=== PATIENT | female | born 1990 | race Caucasian/White ===

== ENCOUNTER 2018-01-19 11:44 | Emergency (ER) | payer MEDICAID, SELFPAY ==
[2018-01-19 11:45] VITALS: BP 115/82; PULSE 116; RESP 16; TEMP 37.3; O2SAT 97; BMI 36.1
[2018-01-19 11:57] VITALS: BP 125/79; PULSE 111; RESP 16; O2SAT 97
[2018-01-19] MEDS: Acetaminophen 500 MG Tablet 1000 MG PO (12:17)
[2018-01-19] MEDS: 0.9% Normal Saline 1,000 ML 1000 ML IV (12:17)
[2018-01-19 12:29] LABS: Mucous, Urine 0 SEEN /hpf (<or=2+); Red Blood Cells-Urine 0 SEEN /hpf (0-5)
[2018-01-19 12:31] LABS: Color, Urine Yellow (Yellow); Glucose, Dipstick Normal (Normal); Ketone-Dipstick 5 mg/dl (Negative); Leukocyte Esterase-Dipstick 25 /ul (Negative); Nitrite-Dipstick Negative (Negative); Occult Blood-Urine 10 /ul (Negative); Protein-Dipstick 30 mg/dl (Negative); Specific Gravity, Urine 1.015 (1.002-1.030); Urine Bilirubin Dipstick Negative (Negative); Urine Clarity Sl. Cloudy (Clear); Urine Urobilinogen 4 mg/dl (Normal); Urine pH 6.5 (5.0 - 8.0)
[2018-01-19 12:41] LABS: Bacteria 1+ /hpf (None Seen)
[2018-01-19 12:42] LABS: Squamous Epithelial Cells - UA 5-10 SEEN /hpf (5-10)
[2018-01-19 12:44] LABS: Hyaline Cast 0-5 SEEN /lpf (0-5); White Blood Cells 0-5 SEEN /hpf (0-5)
--- NOTE | 2018-01-19 13:14 | ED.DCSUM_ITS ---
- ER Visit Summary Date of Service: 01/19/18 Chief Complaint: Vomiting History of Present Illness: The patient is a 27 F who is 14 weeks . She is Ab1. She has had nausea vomiting since Clement night. She notes that she has had an onset of rhinorrhea cough myalgias headache chills and sweats. She denies any diarrhea or rashes. She states she has been around numerous people who have had the flu. Physical Examination: Temperature 99.2 heart rate of 116 respirations are 16 pulse ox is 97% blood pressure 115/82 Gen: Well-nourished well-developed Head: Normocephalic atraumatic Eyes: Perrl EOMI ENT: TMs clear +rhinorrhea moist mucous membranes Neck: Supple no lymphadenopathy no JVD nontender CVS: Slightly tachycardic regular rate rhythm no murmurs normal S1-S2 Respiratory: No distress clear to auscultation bilaterally chest nontender Abdomen: Soft nontender nondistended normal bowel sounds no masses Back: Nontender Extremity: Nontender no edema Skin: Normal color no rash Neuro: alert orientated ?3 CN II-XII intact normal strength sensation reflexes gait cerebellar Psych: Normal affect normal mood Test Results: Urinalysis showed 5-10 epithelial cells 1+ bacteria. There were 5 ketones noted. She is influenza B positive. Emergency Department Course and Treatment: The heart tones 150. Patient received a dose of Phenergan and IV fluids. She also received a dose of Tylenol. Patient will be started on Tamiflu and following with the CDC guidelines. Also write her for Phenergan. She is to follow-up with her doctor return if worsening. Impression: Line 1. Influenza B 2. Second trimester This note was generated with [employer] dictation software. It may contain incorrect words, spelling, and punctuation that were not noted in review of the chart prior to signing ED Disposition - Plan for ED Patient: Disposition: Home or Assisted Living Chief Complaint: Nausea/Vomiting Instructions: ED Flu Prescriptions: ProMETHAzine [Phenergan] 25 mg PO Q6H PRN PRN #10 tab PRN Reason: Nausea Oseltamivir Phosphate [Tamiflu] 75 mg PO BID #10 cap Referrals: Derick Xie DO [Primary Care Provider] - Keep Maggie appointment Additional Instructions: return if worsening or concerns
[2018-01-19 13:49] VITALS: BP 120/73; PULSE 97; RESP 16; O2SAT 95
== END 2018-01-19 13:52 | disposition home or self-care (01) ==
PROVIDERS: Emergency Provider Emergency Medicine; Family Provider Specialist; PCP Specialist
DX: O98.512 Other viral diseases complicating pregnancy, second trimester (principal); J10.1 Influenza due to other identified influenza virus with other respiratory manifestations; Z3A.14 14 weeks gestation of pregnancy
CPT/HCPCS: 81001; 87804; J7030

== ENCOUNTER → 2018-01-19 12:38 | Outpatient (CLI) | payer MEDICAID, SELFPAY ==
[2018-01-20 09:28] LABS: HIV - WCH Non-Reactive (Nonreactive)
[2018-01-21 15:55] LABS: V-Zoster IgG (Immunity) 961 index (Immune >165)
== END ==
PROVIDERS: Family Provider Specialist; PCP Specialist; Visit Provider Specialist
DX: O99.212 Obesity complicating pregnancy, second trimester (principal); E66.9 Obesity, unspecified; O98.512 Other viral diseases complicating pregnancy, second trimester; J10.1 Influenza due to other identified influenza virus with other respiratory manifestations; Z3A.14 14 weeks gestation of pregnancy
CPT/HCPCS: 81001; 86703; 86787; 87804; 96361; 96374; 99283; J7030

== ENCOUNTER → 2018-03-27 09:35 | Outpatient (CLI) | payer MEDICAID, SELFPAY ==
[2018-03-27 11:11] LABS: Hematocrit 33.6 % (37-47); Hemoglobin 11.2 g/dl (12.0-15.0); Mean Corp Hgb Conc 33.3 g/gl (32-36); Mean Corpuscular Hgb 30.1 pg (27.0-32.0); Mean Corpuscular Volume 90.3 fL (81-99); Platelet Count 228 K/mm3 (150-450); RBC Distribution Width CV 12.9 % (11.6-14.6); RBC Distribution Width SD 42.5 fl (35.1-43.9); Red Blood Count 3.72 M/mm3 (4.2-5.4); Scan Indicated on CBC? Y/N NO; White Blood Count 9.9 K/mm3 (4.4-11.0)
[2018-03-27 12:08] LABS: Glucose Challenge Gest 1H 50g 196 mg/dL (70-140); Thyroid Stim Hormone (TSH) 1.93 uIU/mL (0.358-3.74)
[2018-03-28 01:05] LABS: Rapid Plasmin Reagin (RPR) NONREACTIVE (NONREACTIVE)
[2018-03-28 09:30] LABS: HIV - WCH Non-Reactive (Nonreactive); Rubella IgG 103.7 IU/mL
[2018-03-29 10:56] LABS: Hep B Surface Antibodies Non Reactive (.); V-Zoster IgG (Immunity) 914 index (Immune >165)
== END ==
PROVIDERS: Family Provider Specialist; PCP Specialist; Visit Provider Specialist
DX: Z36.89 Encounter for other specified antenatal screening (principal)
CPT/HCPCS: 36415; 82950; 84443; 85027; 86592; 86703; 86706; 86762; 86787; 86850; 86900

== ENCOUNTER 2018-12-29 08:28 | Emergency (ER) | payer MEDICAID, SELFPAY ==
[2018-12-29 08:29] VITALS: BP 150/97; PULSE 105; RESP 20; TEMP 36.6; O2SAT 97; BMI 37.0
--- NOTE | 2018-12-29 08:52 | RAD_ITS ---
STUDY: X-RAY - LEFT ANKLE REASON FOR EXAM: Female, 28 years old. Medial ankle pain following a fall. TECHNIQUE: 3 view(s) of the ankle. COMPARISON: None. FINDINGS: Normal visualized distal tibia and fibula. Normal medial and lateral malleoli. Normal tibiotalar articulation and ankle mortise. A spur is seen at the insertion of the Achilles tendon. The visualized subtalar, talonavicular, calcaneocuboid and tarsal articulations are normal. The soft tissue structures are unremarkable. RAD/Ankle min 3 Views IMPRESSION: No acute abnormality is seen. Electronically Signed: Dean Hickey MD at 9:20 EST , Service support ,
--- NOTE | 2018-12-29 08:56 | ED.DCSUM_ITS ---
- ER Visit Summary Date of Service: 12/29/18 Chief Complaint: Left ankle pain, cold symptoms History of Present Illness: The patient is a 28 F who slipped on the ice last night and rolled her left ankle pain she is complaining of pain primarily to the medial portion of her ankle and has difficulty with weightbearing on her heel. She denies pain at her knee. She also complains of cough and cold symptoms for the past several days. Physical Examination: Vital signs remarkable for blood pressure 150/97 and a heart rate of 105. Head neck examination unremarkable. TMs clear. Heart is regular rate and rhythm. Lungs sounds are clear. Abdomen is soft nontender. Left lower extremity examination reveals medial malleolar tenderness with minimal edema. There is no tenderness of the proximal fibula. She has strong distal pulses. No overlying skin changes. Test Results: Left ankle x-rays are obtained and show no acute abnormality. Emergency Department Course and Treatment: Patient is given naproxen and Tessalon Perles for her cough. Test results are discussed with her. She will be given an air stirrup splint, naproxen, and Tessalon Perles for home. She is given a work note for today. Treatment Plan: [] Disposition: Discharge Impression: 1. Left ankle sprain 2. Viral URI This note was generated with [employer] dictation software. It may contain incorrect words, spelling, and punctuation that were not noted in review of the chart prior to signing ED Disposition - Plan for ED Patient: Referrals: Derick Xie DO [STAFF PHYSICIAN] -
[2018-12-29] MEDS: Naproxen 500 MG Tablet PO (09:16)
[2018-12-29] MEDS: Benzonatate 100 MG Capsule 200 MG PO (09:16)
--- NOTE | 2018-12-29 09:34 | ED.DEP ---
ED Disposition - Plan for ED Patient: Disposition: Home or Assisted Living Instructions: ED Sprain Ankle W X Ray, ED URI Viral Prescriptions: Benzonatate [Tessalon Perle] 200 mg PO TID PRN PRN #20 capsule PRN Reason: Cough Naproxen [Naprosyn] 500 mg PO BID PRN PRN #20 tablet PRN Reason: Pain Referrals: Solange Guthrie DO [STAFF PHYSICIAN] - As Needed
== END 2018-12-29 10:00 | disposition home or self-care (01) ==
PROVIDERS: Emergency Provider Emergency Medicine
DX: S93.402A Sprain of unspecified ligament of left ankle, initial encounter (principal); W00.2XXA Other fall from one level to another due to ice and snow, initial encounter; Y93.9 Activity, unspecified; Y92.9 Unspecified place or not applicable; J06.9 Acute upper respiratory infection, unspecified
CPT/HCPCS: 73610; 99284

== ENCOUNTER 2019-12-17 19:59 | Emergency (ER) | payer MEDICAID, SELFPAY ==
[2019-12-17 20:00] VITALS: BP 150/104; PULSE 92; RESP 18; TEMP 36.4; O2SAT 100; BMI 37.5
--- NOTE | 2019-12-17 20:36 | ED.VIS.URI ---
History of Present Illness Chief Complaint: Eye Problem Informant: Patient Onset: Today Context: - - awoke with symptoms Timing: Continuous Quality: red, irritated Location: left > right Current Severity: Mild Maximum Severity: Mild Worsened by: - - n/a Relieved by: - - n/a Associated Symptoms: Nasal Congestion, Nonproductive cough, - - no fevers. Negative for: Shortness of Breath Narrative: Patient has had a cold for less than a week, today she woke up with matting in both eyes, redness, irritation. No changes in her vision. No itching. She denies any obvious chemical exposure to her eyes. 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 Past Medical History - Allergies and Home Meds Allergies/Adverse Reactions: Allergies tramadol Allergy (Verified 12/17/19 20:02) Hives Primary Care Physician: Care Physician,No Primary [Primary Care Provider] - Past Medical History: None Lives: Alone Smoking Status: Never smoker Review of Systems General: Denies: Chills, Fever, Sweats Eyes: Reports: - - Bilateral eye redness, matting, irritation. Denies: Visual changes - bilaterally, Diplopia ENT: Reports: Rhinorrhea. Denies: Bilateral ear pain, Sore throat Respiratory: Reports: Cough. Denies: Dyspnea, Sputum Physical Exam Vital Signs/Narrative: Vital Signs Temp Pulse Resp BP Pulse Ox 12/17/19 20:00 97.6 F L 92 18 150/104 H 100 Inital Vital Signs reviewed: Yes General: Well nourished, Well developed, - - Well-appearing, NAD Head: Normocephalic, Atraumatic Eyes: Perrl, EOMI - Without pain or extraocular entrapment, - - Lateral conjunctival injection, palpebral and bulbar, worse on the left than the right. No active purulent discharge. No chemosis. Corneas grossly are normal bilaterally. Ears: Normal external canal, TM's clear Nose: Normal Inspection, Congestion. Negative for: Purulent Drainage Mouth/Throat: Normal Inspection, No Posterior Erythema Neck: Supple, Nontender, No Lymphadenopathy Cardiovascular: Regular rate, Regular rhythm, No murmurs Respiratory: No distress, CTA bilaterally, Chest nontender Skin: Normal color, No rash Neurological: Alert, Oriented x3, Cranial nerves II-XII grossly intact, Normal Strength, Normal Sensation, Normal Gait Psychological: Normal affect, Normal Mood Diagnostic/Tx/Re-eval - Medical Decision Making Advised patient this is likely viral and probably will not get better with antibiotic ointment, but given her a tube of bacitracin ophthalmic for symptom control/comfort only. Given work note as she should not be around food since that this is likely very contagious. ED Disposition - Plan for ED Patient: Disposition: Home or Assisted Living Diagnosis: Conjunctivitis, both eyes, Viral URI with cough Instructions: CONJUNCTIVITIS, Viral, URI, Viral, No Abx (Adult) Referrals: Kira Jauregui [NON-STAFF] - 10-14 Days if not better Additional Instructions: May use antibiotic ointment to affected eye(s) as needed up to every 3-4 hours
[2019-12-17 21:03] VITALS: RESP 16
== END 2019-12-17 21:04 | disposition home or self-care (01) ==
LOC: ED 20:40
PROVIDERS: Emergency Provider Emergency Medicine
DX: H10.9 Unspecified conjunctivitis (principal); J06.9 Acute upper respiratory infection, unspecified
CPT/HCPCS: 99282

== ENCOUNTER 2019-12-22 08:16 | Emergency (ER) | payer MEDICAID, SELFPAY ==
[2019-12-22 08:17] VITALS: BP 146/102; PULSE 97; RESP 18; TEMP 36.6; O2SAT 99; BMI 39.4
--- NOTE | 2019-12-22 08:51 | ED.VISSUMM ---
- ER Visit Summary Date of Service: 12/22/19 Chief Complaint: Bilateral eye discharge History of Present Illness: The patient is a 29 F no significant past medical history. No prior eye surgery. Does not wear contacts. Does wear glasses. States she was diagnosed with pinkeye last . She has had crusting. She has been bacitracin ointment. And now her eyes are red. She denies any trauma. She denies any fever. Physical Examination: Well-appearing 29-year-old female. Vital signs stable afebrile. H EENT exam unremarkable except bilateral subconjunctival hemorrhages. Currently no discharge. No swelling. Extraocular motions are intact. Pupils round reactive light. Upper and lower lids were everted unremarkable. Tetracaine was instilled in both eyes as well as fluorescein stain. There is no foreign body. No ulcers. And no corneal abrasions. Slit-lamp was done bilaterally. There is no facial lymphadenopathy. No significant facial swelling. Neck nontender. Lungs clear to auscultation bilaterally. Heart regular rhythm no murmur. Abdomen soft nontender. Patient moving all 4 extremities. Neurovascularly intact. No edema. Neurologic exam normal. Test Results: None Emergency Department Course and Treatment: Slit-lamp done on both eyes shows bilateral subconjunctival hemorrhages but no corneal abrasions or ulcers. Treatment Plan: Stop the bacitracin ointment. Follow-up with marketing data specialist if not improving. Disposition: Discharge Impression: Status post viral conjunctivitis Bilateral subconjunctival hemorrhages This note was generated with [employer] dictation software. It may contain incorrect words, spelling, and punctuation that were not noted in review of the chart prior to signing ED Disposition - Plan for ED Patient: Referrals: Care Physician,No Primary [Primary Care Provider] -
--- NOTE | 2019-12-22 09:42 | ED.DEP ---
ED Disposition - Plan for ED Patient: Disposition: Home or Assisted Living Instructions: Subconjunctival Hemorrhage Referrals: Zach Arriola MD [STAFF PHYSICIAN] - 3-5 Days if not improving Additional Instructions: Do not rub your eyes. Stop the eye ointment. This should progressively start getting better if not follow-up with the eye doctor listed.
[2019-12-22] MEDS: Tetracaine 0.5% Ophthalmic Bottle 5 DRP EACH EYE (09:48)
== END 2019-12-22 09:50 | disposition home or self-care (01) ==
PROVIDERS: Emergency Provider Emergency Medicine
DX: H11.33 Conjunctival hemorrhage, bilateral (principal); R11.2 Nausea with vomiting, unspecified
CPT/HCPCS: 99282

== ENCOUNTER 2020-02-07 11:21 | Emergency (ER) | payer MEDICAID, SELFPAY ==
[2020-02-07 11:22] VITALS: BP 140/101; PULSE 93; RESP 20; TEMP 36.8; O2SAT 97; BMI 39.6
--- NOTE | 2020-02-07 11:41 | ED.VIS.GEN ---
History of Present Illness Chief Complaint: Cough Informant: Patient Onset: Weeks Maximum Severity: Mild Narrative: National coronavirus emergency and affect patient no exposures Harsh cough runny nose for about 3 weeks she is not had a flu vaccination, she smokes marijuana no cigarettes, eating and drinking well no fever just the persistence of the cough no obvious other exposures no history of COPD ME PE otherwise feeling well no fevers Past Medical History - Allergies and Home Meds Allergies/Adverse Reactions: Allergies tramadol Allergy (Verified 02/07/20 11:23) Hives Primary Care Physician: Care Physician,No Primary [Primary Care Provider] - Past Medical History: None Smoking Status: Current every day smoker Review of Systems General: Denies: Chills, Fever, Sweats Eyes: Denies: Visual changes - bilaterally, Diplopia ENT: Reports: Rhinorrhea. Denies: Sore throat Cardiovascular: Denies: Chest pain, Palpitations Respiratory: Reports: Cough. Denies: Dyspnea, Dyspnea on exertion Gastrointestinal: Denies: Abdominal pain, Nausea, Vomiting, Diarrhea, Melena, Hematochezia Genitourinary: Denies: Dysuria, Hematuria, Frequency Musculoskeletal: Denies: Back pain, Extremity Pain Skin: Denies: Rash, Wounds Neurological: Denies: Headache, Weakness, Numbness Physical Exam Vital Signs/Narrative: Vital Signs Temp Pulse Resp BP Pulse Ox 02/07/20 11:22 98.3 F 93 20 H 140/101 H 97 General: Well nourished, Well developed, No Acute Distress Head: Normocephalic, Atraumatic Eyes: Perrl, EOMI ENT: Moist mucous membranes, Nasal congestion Neck: Supple, Nontender Cardiovascular: Regular rate, Regular rhythm, No murmurs Respiratory: No distress, CTA bilaterally, Chest nontender Abdomen: Soft, Nontender, Nondistended, Normal bowel sounds Back: Nontender, Normal Inspection Extremities: Nontender, No edema Skin: Normal color, No rash Neurological: Alert, Oriented x3, Cranial nerves II-XII grossly intact, Normal Strength, Normal Sensation Psychological: Normal affect, Normal Mood Diagnostic/Tx/Re-eval - Medical Decision Making Clinically the patient looks well her vital signs are unremarkable she is afebrile she does not have a dry cough here this time chest x-rays obtained, is unremarkable explained all the above with her explained the concept of a coronavirus she has no exposures history of COPD she discharged on inhaler [id number] meds and she will follow-up with her outpatient providers Home stable Final impression URI with cough ED Disposition - Plan for ED Patient: Diagnosis: URI with cough Instructions: BRONCHITIS with Wheezing (Adult) Prescriptions: Albuterol Inhaler [Ventolin Hfa] 1 - 2 puff INHALATION Q4H PRN PRN #1 inhaler PRN Reason: Wheezing Prescription Printed Referrals: Care Physician,No Primary [Primary Care Provider] -
--- NOTE | 2020-02-07 12:00 | RAD_ITS ---
STUDY: X-RAY CHEST REASON FOR EXAM: Female, 29 years old. Cough and congestion x3 weeks TECHNIQUE: PA and lateral views of the chest. COMPARISON: 08/01/2017 FINDINGS: The lungs are clear and expanded. There is no demonstrated pleural abnormality. Normal size heart. Normal mediastinum and alex. Normal visualized pulmonary arteries. Normal visualized aortic arch and descending thoracic aorta. Normal visualized thoracic spine. Normal visualized ribs, clavicles, and shoulders. There is no demonstrated abnormality of the visualized soft tissue structures of the upper abdomen. RAD/Chest PA and Lateral IMPRESSION: Normal x-ray examination of the chest. Electronically Signed: Romario Carr MD at 12:29 EDT , Service support ,
[2020-02-07 12:55] VITALS: PULSE 97; RESP 16; O2SAT 97
== END 2020-02-07 12:58 | disposition home or self-care (01) ==
LOC: ED 11:53
PROVIDERS: Emergency Provider Emergency Medicine
DX: J06.9 Acute upper respiratory infection, unspecified (principal); F17.200 Nicotine dependence, unspecified, uncomplicated
CPT/HCPCS: 71046; 99282

== ENCOUNTER 2020-02-10 17:40 | Emergency (ER) | payer MEDICAID, SELFPAY ==
[2020-02-10 17:40] VITALS: BP 158/119; PULSE 93; PULSE 98; RESP 16; RESP 18; TEMP 36.2; O2SAT 97; BMI 39.5
--- NOTE | 2020-02-10 18:03 | ED.VISSUMM ---
- ER Visit Summary Date of Service: 02/10/20 Chief Complaint: Left ear pain History of Present Illness: The patient is a 29 F who presents with left ear pain that is been getting worse over the past 4 days. Patient was seen here 4 days ago and was diagnosed with bronchitis. Patient states she was put on an inhaler for her bronchitis which has not been helping. Patient states that when she left here she developed ear pain in her left ear shortly after she got home. Patient denies any fevers or chills. Patient describes her pain as throbbing. Patient states she has been taking Tylenol and ibuprofen with no improvement. Patient denies any nausea or vomiting. Physical Examination: Vital signs are stable. Patient is afebrile here. Patient is in no acute distress. The left tympanic membrane is dull and bulging. There is some mild erythema. The right tympanic membrane has a moderate effusion. There is no erythema or bulging. Oral mucosa is pink and moist. Oropharynx is clear. Neck is supple. Trachea is midline. There is no JVD. Heart was regular rate and rhythm. Lungs are clear and equal bilaterally. Abdomen is soft. Bowel sounds are normal. There is no tenderness. Cranial nerves II through XII are intact. There are no focal motor or sensory deficits noted. Emergency Department Course and Treatment: Patient was given a dose of amoxicillin and Tylenol here. Patient was given prescriptions for amoxicillin, Flonase, and Tessalon Perles. Patient was instructed to drink plenty of fluids. Patient was instructed to continue Tylenol and ibuprofen as needed for pain or fevers. Patient was instructed to follow-up with her primary care physician in 5 to 7 days. Patient was given a note allowing her to return to work. Patient understood and was agreeable with the plan. All questions were answered. Disposition: Discharge home Impression: 1. Left otitis media This note was generated with [employer] dictation software. It may contain incorrect words, spelling, and punctuation that were not noted in review of the chart prior to signing ED Disposition - Plan for ED Patient: Disposition: Home or Assisted Living Diagnosis: Left otitis media with effusion Instructions: OTITIS MEDIA, Abx Tx (Adult) Prescriptions: Amoxicillin 500 mg PO TID #30 tab Prescription Printed Fluticasone 0.05% [Flonase Nasal [place]] 1 spray NASAL DAILY #1 bottle Prescription Printed Benzonatate [Tessalon Perle] 200 mg PO TID PRN PRN #20 cap PRN Reason: Cough Prescription Printed Referrals: Care Physician,No Primary [Primary Care Provider] - 5-7 Days
[2020-02-10] MEDS: Acetaminophen 325 MG Tablet 1000 MG PO (18:19)
[2020-02-10] MEDS: AMOXICILLIN 500 MG CAPSULE PO (18:19)
--- NOTE | 2020-02-10 18:24 | ED.RN ---
DISCHARGE INSTRUCTIONS GIVEN TO AND REVIEWED WITH PATIENT, PATIENT DENIES QUESTIONS OR CONCERNS AND VOICES UNDERSTANDING OF DISCHARGE INSTRUCTIONS. PT AMBULATES OUT OF ROOM WITHOUT DIFFICULTY.
== END 2020-02-10 18:25 | disposition home or self-care (01) ==
LOC: ED 18:12
PROVIDERS: Emergency Provider Emergency Medicine
DX: H65.92 Unspecified nonsuppurative otitis media, left ear (principal)
CPT/HCPCS: 99283

== ENCOUNTER 2021-05-23 07:59 | Emergency (ER) | payer MEDICAID, SELFPAY ==
[2021-05-23 08:00] VITALS: BP 151/100; PULSE 66; RESP 16; TEMP 36.2; O2SAT 98; BMI 31.6
--- NOTE | 2021-05-23 08:12 | EX.ED.DYSGE1 ---
HPI History of Present Illness Chief Complaint: Rash Narrative Narrative: Patient presenting for evaluation secondary to rash. Patient states she woke up this morning and noticed a rash on her left arm mainly, and a small spot on her right arm. She states that it is mildly itchy. When he gets close to heat it will turn more red. Its not painful. Patient denies any constitutional symptoms such as fevers chills or night sweats. Patient has no history of immunosuppression, no new medication exposures. She does report that she used a new spray as well as laundry detergent recently. Patient denies any difficulty swallowing. She denies any difficulty breathing. No past history of severe injuries. Review of systems otherwise negative. PFSH PFSH Home Medications albuterol sulfate 1 - 2 puff INHALATION Q4H PRN PRN #1 inhaler 02/07/20 [Rx Last Taken Unknown] amoxicillin 500 mg PO TID #30 tab 02/10/20 [Rx Last Taken Unknown] benzonatate 200 mg PO TID PRN PRN #20 cap 02/10/20 [Rx Last Taken Unknown] fluticasone propionate 1 spray NASAL DAILY #1 bottle 02/10/20 [Rx Last Taken Unknown] hydrocortisone 1 applic TOPICAL TID PRN #28.35 g 05/23/21 [Rx Last Taken Unknown] Allergy/AdvReac Type Severity Reaction Status Date / Time dicyclomine [From Bentyl] Allergy Hives Verified 05/23/21 07:59 tramadol Allergy Hives Verified 05/23/21 07:59 Surgical History H/O tubal ligation Social History Smoking Status: Current some day smoker tobacco type: cigarettes ROS ROS ED Constitutional Constitutional ED: Denies chills, fever(s) or subjective ENT ENT ED: Denies sore throat Respiratory/Chest Respiratory/Chest: Denies dyspnea Gastrointestinal Gastrointestinal: Denies nausea or vomiting Musculoskeletal Musculoskeletal: Denies myalgias Integumentary Reports rash Endocrine Endocrinology: Denies polydipsia or polyuria Allergic/Immunologic Allergic/Immunologic ED: Denies mouth swelling, tongue swelling or urticaria EXAM Physical Exam Const Vital Signs: 05/23/21 08:00 Temperature 97.1 F L Temperature Source Temporal Pulse Rate 66 Respiratory Rate 16 Blood Pressure 151/100 H Blood Pressure Mean 117 Pulse Ox 98 Oxygen Delivery Method Room Air Positive well nourished and well developed General Appearance ED: well developed HEENT Reports moist mucous membranes HEENT Narrative: Oropharynx is clear and patent no evidence of lip or tongue swelling no evidence of stridor Eyes EOMs intact bilaterally Neck no lymphadenopathy and supple Resp normal respiratory effort and clear to auscultation bilaterally Cardio regular rate, regular rhythm and no murmurs Extremity General Extremety ED: Negative for edema or tenderness General Extremity: Negative for edema Neuro oriented x3 Sensorium / Orientation: alert Psych mental status grossly normal Skin Skin Narrative: Examination of the patient's left arm shows an urticarial appearing rash over the patient's antecubital area tracking upward on the upper arm. This is blanching and nontender. No subcutaneous emphysema, no lymphangitic streaking, no induration or fluctuance is noted. No petechia or purpura are noted. Patient has a very small patch of this in her right antecubital area MDM MDM MDM Narrative Medical decision making narrative: Patient is presenting with a rash that seems consistent with contact dermatitis. I am not concerned for infection. Patient be treated topical with cortisone cream. Discharge Plan Triage Chief Complaint: Rash ED Provider: Andi Rico Dx/Rx/DC Orders Clinical Impression: Contact dermatitis Instructions: ED Contact Dermatitis Prescriptions: New hydrocortisone 1 % cream 1 applic topical TID PRN (Reason: rash) Qty: 28.35 RF: 0 No Action albuterol sulfate 1 INHALER inhaler 1 - 2 puff inhalation Q4H PRN PRN (Reason: Wheezing) Qty: 1 RF: 0 amoxicillin 500 MG tablet 500 mg PO TID Qty: 30 RF: 0 benzonatate 100 MG capsule 200 mg PO TID PRN PRN (Reason: Cough) Qty: 20 RF: 0 fluticasone propionate 1 SPRAY spray,suspension 1 spray NASAL DAILY Qty: 1 RF: 0 Primary Care Provider: Care Physician,No Primary Referrals: Care Physician,No Primary [Primary Care Provider] - Activity Restrictions/Additional Instructions: Follow-up with your primary care physician as needed Disposition Disposition: Home, Self Care
== END 2021-05-23 08:28 | disposition home or self-care (01) ==
LOC: ED 08:28
PROVIDERS: Emergency Provider Emergency Medicine
DX: L25.9 Unspecified contact dermatitis, unspecified cause (principal); F17.210 Nicotine dependence, cigarettes, uncomplicated
CPT/HCPCS: 99282

== ENCOUNTER 2021-11-25 15:19 | Emergency (ER) | payer MEDICAID, SELFPAY ==
[2021-11-25 15:21] VITALS: BP 161/112; PULSE 110; RESP 18; TEMP 36.6; O2SAT 99; BMI 38.9
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
[2021-11-25] MEDS: Diphth,Pertuss(Acell),Tet Vac 0.5 ML Vial IM (15:59)
--- NOTE | 2021-11-25 16:27 | ED.RN ---
pt. came to the door. states she feels fine and she is leaving pt walks out of department with out shoes, no jacket, no ride home and lacerations dressed. aware
== END 2021-11-25 16:30 | disposition left against medical advice (07) ==
LOC: ED 15:55
PROVIDERS: Emergency Provider Emergency Medicine
DX: S10.91XA Abrasion of unspecified part of neck, initial encounter (principal); S60.512A Abrasion of left hand, initial encounter; S80.212A Abrasion, left knee, initial encounter; E66.9 Obesity, unspecified; F17.210 Nicotine dependence, cigarettes, uncomplicated; Y92.410 Unspecified street and highway as the place of occurrence of the external cause; Z53.29 Procedure and treatment not carried out because of patient's decision for other reasons; V49.3XXA Car occupant (driver) (passenger) injured in unspecified nontraffic accident, initial encounter
CPT/HCPCS: 70450; 71045; 72125; 90715; 96372; 99284; A4216

== ENCOUNTER 2023-08-09 22:00 | Emergency (ER) | payer MEDICAID, SELFPAY ==
[2023-08-09 22:02] VITALS: BP 143/100; PULSE 94; RESP 20; TEMP 36.3; O2SAT 96; BMI 38.2
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
[2023-08-09 23:07] LABS: Absolute Lymphocyte Count 3.18 X10^3/uL (0.83-4.51); Absolute Neutrophil Count 3.5 X10^3/uL (2.0-7.7); Basophil# 0.05 X10^3/uL; Basophil% 0.7 % (0-1); Eosinophil# 0.17 X10^3/uL; Eosinophils% 2.2 % (0-5); Hematocrit 41.8 % (37-47); Hemoglobin 14.2 g/dL (12.0-15.0); Lymphocyte # 3.18 X10^3/ul (0.83-4.51); Lymphocyte % 41.6 % (19-41); Mean Corpuscular Volume 94.1 fL (81-99); Mean Platelet Vol. 9.7 fl (6.2-12.0); Monocyte# 0.67 X10^3/uL; Monocyte% 8.8 % (0-10); NRBC Flagged by Analyzer 0 % (0-5); Neutrophil # 3.53 X10^3/uL (2.7-7.7); POSITIVE MORPHOLOGY YES; Platelet Count 296 K/mm3 (150-450); RBC Distribution Width CV 11.9 % (11.6-14.6); RBC Distribution Width SD 41.3 fl (35.1-43.9); Red Blood Count 4.44 M/mm3 (4.2-5.4); White Blood Count 7.7 K/mm3 (4.4-11.0)
[2023-08-09 23:22] LABS: Anion Gap 7 (5-15); BUN 11 mg/dL (7-18); BUN/Creat Ratio 15.9 RATIO (10-20); Calcium,Total 8.6 mg/dL (8.5-10.1); Chloride 111 mmol/L (98-107); Creatinine, Serum 0.69 mg/dL (0.55-1.02); EST Glomerular Filtration Rate 102 mL/min (>60); Est Glom Filt Rate - Afr Amer 124 mL/min (>60); Estimated Creatinine Clearance 110.66 ml/min; Glucose 173 mg/dL (74-106); Potassium 3.4 mmol/L (3.5-5.1); Sodium Level 143 mmol/L (136-145)
[2023-08-09 23:25] LABS: Differential Indicated SCAN CRITERIA MET
[2023-08-09 23:26] LABS: Differential Comment SCANNED; Reactive Lymphocyte 2+
[2023-08-10 00:27] VITALS: RESP 20; O2SAT 92
--- NOTE | 2023-08-10 01:22 | ED.RN ---
Attempt made to call pt's contact/significan other Brennan Jaime for ride. Phone number in chart has block that will not allow call to go through. Will continue to monitor until pt able to provide family or friend contact number for milk pickup driver.
--- NOTE | 2023-08-10 03:47 | ED.RN ---
patient speaking with tracy CARTER. Patient no longer wants to stay. Offered patient to stay till morning. Patient refusing. Patient able to walk on own free will without any assistance. Patient wants to leave and no longer wants to stay. Discharge instructions given.
== END 2023-08-10 03:49 | disposition home or self-care (01) ==
PROVIDERS: Emergency Provider Emergency Medicine; Visit Provider Emergency Medicine
DX: F10.121 Alcohol abuse with intoxication delirium (principal); R04.0 Epistaxis; F17.210 Nicotine dependence, cigarettes, uncomplicated
CPT/HCPCS: 70450; 80048; 82077; 85025; 99284

== ENCOUNTER 2024-10-10 23:40 | Emergency (ER) | payer SELFPAY ==
[2024-10-10 23:41] VITALS: BP 136/99; PULSE 94; RESP 16; TEMP 36.1; O2SAT 97; BMI 38.2
[2024-10-11] MEDS: Ziprasidone IM 20 MG/ML VIAL IM (00:04)
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
[2024-10-11 05:00] VITALS: BP 153/99; PULSE 70; RESP 16; O2SAT 97
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
== END 2024-10-11 06:07 | disposition home or self-care (01) ==
PROVIDERS: Emergency Provider Emergency Medicine; Visit Provider Emergency Medicine
DX: F10.129 Alcohol abuse with intoxication, unspecified (principal); I10 Essential (primary) hypertension; F32.A Depression, unspecified
CPT/HCPCS: 96372; 99285; J3486

== ENCOUNTER 2024-10-17 19:02 | Observation (INO) | payer SELFPAY ==
[2024-10-17] VITALS (22 sets, daily range): BP systolic 105–200; BP diastolic 57–134; PULSE 89–123; RESP 14–24; TEMP 36.8; O2SAT 2–99; BMI 37.3
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
--- NOTE | 2024-10-17 19:19 | CT_ITS ---
INDICATION: facial injury EXAMINATION: CT FACIAL BONES - CT Maxillofacial W/O Contrast Injection TECHNIQUE: Helically acquired images were obtained of the facial bones. A radiation dose optimization technique was used for this scan. IV Contrast dosage and agent: None. Radiation Dose (provided by facility) CTDIvol (29.38 ) mGy, DLP ( 650.30) mGy-cm COMPARISON: None. FINDINGS: ORBITS: 1. Normal appearance the bony gaxiola the orbits. Soft tissue planes including preseptal and post septal soft tissue planes have normal appearance. Normal appearance of the globes, ocular lenses and optic nerves. NASAL SKELETON: Nondisplaced RIGHT nasal fracture. Nasal septum is intact although deviated. No other fractures noted. PARANASAL SINUSES: Normal, no fluid collections noted. Diffuse mucosal thickening in the LEFT maxillary antrum is noted. SKULL BASE AND ZYGOMATIC ARCHES: Normal, normal alignment, no fractures noted. VISUALIZED MANDIBLE: 1. Normal appearance of the mandibular condyles, TMJs, and the visualized mandible to the level of the symphysis. 2. The patient is edentulous. OTHER: 1. LEFT frontal scalp contusion. 2. Normal appearance of the deep spaces of the head and visualized upper neck. Airway has normal appearance. CT/Sinus/Facial Bone IMPRESSION: 1. Nondisplaced RIGHT nasal fracture. Deviation nasal septum without evidence of fracture. 2. No other facial fractures noted. 3. LEFT frontal scalp contusion. 4. Normal appearance of the orbits including the globes and retrobulbar soft tissue planes. Electronically Signed: Jaxon Dsouza MD at 21:56 EST ,
--- NOTE | 2024-10-17 19:19 | CT_ITS ---
INDICATION: head injury EXAMINATION: CT BRAIN - CT Head or Brain W/O Contrast Injection TECHNIQUE: Multiple axial images were obtained of the head without intravenous contrast. A radiation dose optimization technique was used for this scan. IV Contrast dosage and agent: None. RADIATION DOSAGE (If Supplied By Facility): CTDIvol = ( 44.99 ) mGy, DLP = ( 779.24 ) mGycm COMPARISON: 08/09/2023 FINDINGS: HEMISPHERES: 1. The cerebral parenchyma, ventricular system, subarachnoid spaces have normal configuration and density. There is a normal gyral pattern. There is normal anne/white differentiation. No midline shift.. 2. The hemispheric white matter has normal appearance. 3. No intraparenchymal mass, hemorrhage, or acute territorial infarct. CEREBELLUM - BRAINSTEM: The cerebellum, brainstem, basilar and suprasellar cisterns have normal appearance. No Chiari malformation. PITUITARY: Infundibulum and pituitary have normal configuration. Midline structures appear normal. CSF SPACES: Appropriate for age. No hydrocephalus. Basal cisterns are patent. VESSELS: 1. No significant vascular calcifications in the cavernous carotid vessels. 2. No hyperdense vascular signs noted.. ORBITS AND PARANASAL SINUSES: 1. Normal appearance of the bony orbits. Normal appearance of the globes and retrobulbar soft tissues.. 2. Paranasal sinuses are clear. BONY ELEMENTS: Bony elements of the cranial vault, facial skeleton and skull base have normal appearance. SCALP AND SOFT TISSUES: [Frontal scalp contusion/hematoma. No underlying fracture. No radiopaque foreign body. Remaining scalp has normal appearance. OTHER: None ASPECTS Score for Acute Strokes: 10 CT/Brain/Head without Contrast IMPRESSION: 1. Normal CT examination of the brain. 2. No intracranial evidence of acute traumatic injury. 3. LEFT frontal scalp contusion. 4. No intracranial mass, hemorrhage or acute territorial infarct. 5. No fractures noted. 6. No radiographically significant sinus disease.. Electronically Signed: Jaxon Dsouza MD at 21:37 EST ,
--- NOTE | 2024-10-17 19:22 | ED.RN ---
PT ARRIVES TO ED COMBATIVE WITH STAFF, TRYING TO STRIKE, PINCH AND CHOKE STAFF. LEATHER RESTRAINTS APPLIED.
[2024-10-17] MEDS: Ziprasidone IM 20 MG/ML VIAL IM (19:23)
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
[2024-10-17 19:51] LABS: Internal QC Validated? YES +Cl - CLEAR BKGD; Pregnancy, Serum, hCG Quali. NEGATIVE Negative
[2024-10-17 19:54] LABS: Anion Gap 11 (5-15); BUN 7 mg/dL (7-18); BUN/Creat Ratio 9.7 RATIO (10-20); Calcium,Total 8.6 mg/dL (8.5-10.1); Chloride 99 mmol/L (98-107); Creatinine, Serum 0.72 mg/dL (0.55-1.02); EST Glomerular Filtration Rate 97 mL/min (>60); Est Glom Filt Rate - Afr Amer 117 mL/min (>60); Estimated Creatinine Clearance 136.69 ml/min; Glucose 176 mg/dL (74-106); Potassium 3.3 mmol/L (3.5-5.1); Sodium Level 134 mmol/L (136-145)
[2024-10-17 20:19] LABS: Absolute Lymphocyte Count 4.17 X10^3/uL (0.83-4.51); Absolute Neutrophil Count 6.3 X10^3/uL (2.0-7.7); Basophil# 0.06 X10^3/uL; Basophil% 0.5 % (0-1); Eosinophil# 0.13 X10^3/uL; Eosinophils% 1.1 % (0-5); Hemoglobin 14.3 g/dL (12.0-15.0); Lymphocyte # 4.17 X10^3/ul (0.83-4.51); Lymphocyte % 35.8 % (19-41); Mean Corp Hgb Conc 34.9 g/dL (32-36); Mean Corpuscular Hgb 31.6 pg (27.0-32.0); Mean Corpuscular Volume 90.5 fL (81-99); Mean Platelet Vol. 9.8 fl (6.2-12.0); Monocyte# 0.95 X10^3/uL; Monocyte% 8.2 % (0-10); NRBC Flagged by Analyzer 0 % (0-5); Neutrophil # 6.25 X10^3/uL (2.7-7.7); Neutrophil % 53.7 % (47-70); Platelet Count 306 K/mm3 (150-450); RBC Distribution Width CV 12.2 % (11.6-14.6); RBC Distribution Width SD 40.1 fl (35.1-43.9); Red Blood Count 4.53 M/mm3 (4.2-5.4); White Blood Count 11.6 K/mm3 (4.4-11.0)
[2024-10-17 21:36] LABS: Amphetamine Urine VISTA NEGATIVE (<1000 ng/mL); Barbiturate Urine VISTA NEGATIVE (< 200 ng/mL); Benzodiazepine Urine VISTA NEGATIVE (< 200 ng/mL); Cocaine Urine VISTA POSITIVE (< 300 ng/mL); Ecstacy Urine VISTA NEGATIVE (< 500 ng/mL); Methadone Urine VISTA NEGATIVE (< 300 ng/mL); PCP Urine VISTA NEGATIVE (< 25 ng/mL); THC Urine VISTA POSITIVE (< 50 ng/mL); Vista UDS pH Range 6
--- NOTE | 2024-10-17 22:17 | EKG12_ITS ---
Test Reason : ARRYTH Blood Pressure : */* mmHG Vent. Rate : 94 BPM Atrial Rate : 94 BPM P-R Int : 142 ms QRS Dur : 106 ms QT Int : 382 ms P-R-T Axes : 59 52 87 degrees QTcB Int : 477 ms Normal sinus rhythm Nonspecific T wave abnormality Prolonged QT Abnormal ECG Confirmed by Andi Ladd ([id number]), assistant production editor LAYTON THOMAS ([id number]) on 10/20/2024 10:26:48 AM Referred By: Confirmed By: Andi Ladd
[2024-10-18] VITALS (21 sets, daily range): BP systolic 95–129; BP diastolic 59–86; PULSE 73–118; RESP 12–19; TEMP 36.2–36.5; O2SAT 93–98; BMI 37.3
--- NOTE | 2024-10-18 05:53 | PCM.HP.STD ---
[facility] - General General Date of Admission: 10/18/24 Date of Service: 10/18/24 Chief Complaint: Requesting Help with EtOH Detox. HPI Narrative NGA WHELAN, is a 34 F with a past medical history of essential hypertension, obesity; with BMI of 37.3 this admission, tobacco abuse, OA; with chronic back pain, history of tubal ligation, listed allergy to dicyclomine (hives), listed allergy to tramadol (hives), depression and history of EtOH Abuse complicated by aggressive and violent behavior; with recent visit to ER here for EtOH Intoxication ~1 week ago who initially presented to [facility] ER after she was found by EMS intoxicated with a head injury and bleeding from the bridge of her nose after she fell at a friend's house after becoming belligerent and then allegedly falling onto her face. According to the ER records she arrived around 19:36 hours and was fighting staff members and requiring restraints with patient otherwise refusing to speak so she was then treated with ziprasidone 20 mg IM once in addition to restraints applied for her safety. She was noted to have a hematoma over the middle of her forehead with a small ~0.5 cm laceration over her nose with no septal hematoma. Her subsequent CT scan of the head was negative for acute intracranial hemorrhage and her CT of the neck was negative for fracture - but her CT scan of the face revealed a nondisplaced nasal fracture with Left frontal scalp contusion. She was also then noted to have signs of obstructive sleep apnea with with snoring likely exacerbated by EtOH intoxication so she was placed on supplemental oxygen. Her UDS returned positive for cocaine and THC with a JUAN PABLO of 480 mg/dL consistent with Severe EtOH Intoxication in the setting Chronic EtOH Abuse along with mild Hypokalemia of 3.3 mmol/L present on admission and a negative urine test. Then at 05:45 hours when she was fully calmed down and responsive she was asked if she had suicidal or homicidal ideation - which she denied. She was then allowed to get up and go to the restroom and she was asked if she would like to enter the EtOH detoxification program and she then answered in the affirmative so the hospitalist service was then contacted to admit this patient to the general medical floor for ongoing care for a stay that is expected to extend beyond 2 midnights. [facility] Medical History Chronic back pain Depression Home Medications ?Medication ?Instructions ?Recorded ?Last Taken ?Type NK 11/25/21 Unknown History Allergy/AdvReac Type Severity Reaction Status Date / Time dicyclomine (From Bentyl) Allergy Hives Verified 10/17/24 19:03 tramadol Allergy Hives Verified 10/17/24 19:03 Surgical History H/O tubal ligation Social History Smoking Status: Current every day smoker tobacco type: cigarettes ROS ROS Narrative Review of Systems: Vital Signs Vital Signs Vital Signs: 10/17/24 19:02 10/17/24 19:06 10/17/24 19:45 Temperature 98.3 F Temperature Source Temporal Pulse Rate 113 H Respiratory Rate 24 H Respiratory Effort Normal Respiratory Depth Normal Respiratory Pattern Normal Blood Pressure 200/134 H Blood Pressure Mean 156 Pulse Ox 98 71 Oxygen Delivery Method Room Air Oxygen Flow Rate (L/min) 10/17/24 19:49 10/17/24 19:57 10/17/24 20:00 Temperature Temperature Source Pulse Rate 98 106 H Respiratory Rate 17 17 Respiratory Effort Respiratory Depth Respiratory Pattern Blood Pressure 113/73 Blood Pressure Mean 86 Pulse Ox 96 Oxygen Delivery Method Nasal Cannula Oxygen Flow Rate (L/min) 2 10/17/24 20:09 10/17/24 20:15 10/17/24 20:30 Temperature Temperature Source Pulse Rate 123 H 111 H 117 H Respiratory Rate 24 H 14 19 H Respiratory Effort Respiratory Depth Respiratory Pattern Blood Pressure 113/73 131/86 H 118/76 Blood Pressure Mean 86 99 87 Pulse Ox 94 95 Oxygen Delivery Method Nasal Cannula Nasal Cannula Oxygen Flow Rate (L/min) 2 2 10/17/24 20:45 10/17/24 21:08 10/17/24 21:09 Temperature Temperature Source Pulse Rate 99 97 99 Respiratory Rate 17 16 17 Respiratory Effort Respiratory Depth Respiratory Pattern Blood Pressure 111/71 114/65 Blood Pressure Mean 82 79 Pulse Ox 95 Oxygen Delivery Method Room Air Oxygen Flow Rate (L/min) 10/17/24 21:15 10/17/24 21:30 10/17/24 21:45 Temperature Temperature Source Pulse Rate 104 H 94 96 Respiratory Rate 16 19 H 19 H Respiratory Effort Respiratory Depth Respiratory Pattern Blood Pressure 115/61 113/58 L 108/59 L Blood Pressure Mean 76 73 72 Pulse Ox 2 Oxygen Delivery Method Nasal Cannula Oxygen Flow Rate (L/min) 10/17/24 22:00 10/17/24 22:00 10/17/24 22:15 Temperature Temperature Source Pulse Rate 92 97 Respiratory Rate 18 18 Respiratory Effort Respiratory Depth Respiratory Pattern Blood Pressure 110/64 110/64 111/74 Blood Pressure Mean 79 75 86 Pulse Ox 95 Oxygen Delivery Method Nasal Cannula Oxygen Flow Rate (L/min) 2 10/17/24 22:30 10/17/24 22:45 10/17/24 23:00 Temperature Temperature Source Pulse Rate 94 95 Respiratory Rate 19 H 18 Respiratory Effort Respiratory Depth Respiratory Pattern Blood Pressure 105/57 L 111/63 105/62 Blood Pressure Mean 72 76 76 Pulse Ox 99 97 Oxygen Delivery Method Nasal Cannula Nasal Cannula Oxygen Flow Rate (L/min) 2 2 10/17/24 23:00 10/17/24 23:15 10/17/24 23:30 Temperature Temperature Source Pulse Rate 95 105 H 94 Respiratory Rate 19 H 21 H 17 Respiratory Effort Respiratory Depth Respiratory Pattern Blood Pressure 109/61 105/62 107/68 Blood Pressure Mean 76 74 81 Pulse Ox Oxygen Delivery Method Oxygen Flow Rate (L/min) 10/17/24 23:45 10/18/24 00:00 10/18/24 00:15 Temperature Temperature Source Pulse Rate 89 88 88 Respiratory Rate 19 H 17 18 Respiratory Effort Respiratory Depth Respiratory Pattern Blood Pressure 105/62 101/67 108/60 Blood Pressure Mean 73 78 73 Pulse Ox 97 93 Oxygen Delivery Method Nasal Cannula Nasal Cannula Oxygen Flow Rate (L/min) 2 10/18/24 00:30 10/18/24 00:45 10/18/24 01:00 Temperature Temperature Source Pulse Rate 86 88 97 Respiratory Rate 17 18 16 Respiratory Effort Respiratory Depth Respiratory Pattern Blood Pressure 102/62 101/66 101/59 L Blood Pressure Mean 75 78 73 Pulse Ox 95 Oxygen Delivery Method Room Air Oxygen Flow Rate (L/min) 10/18/24 01:00 10/18/24 01:15 10/18/24 01:30 Temperature Temperature Source Pulse Rate 89 87 87 Respiratory Rate 17 16 16 Respiratory Effort Respiratory Depth Respiratory Pattern Blood Pressure 101/59 L 101/65 101/64 Blood Pressure Mean 72 76 76 Pulse Ox 97 95 Oxygen Delivery Method Nasal Cannula Nasal Cannula Oxygen Flow Rate (L/min) 2 10/18/24 01:45 10/18/24 02:00 10/18/24 02:00 Temperature Temperature Source Pulse Rate 89 86 86 Respiratory Rate 18 18 18 Respiratory Effort Respiratory Depth Respiratory Pattern Blood Pressure 100/61 100/59 L Blood Pressure Mean 73 72 Pulse Ox 97 98 Oxygen Delivery Method Nasal Cannula Nasal Cannula Oxygen Flow Rate (L/min) 2 2 10/18/24 02:15 10/18/24 02:30 10/18/24 02:45 Temperature Temperature Source Pulse Rate 118 H 92 90 Respiratory Rate 16 18 18 Respiratory Effort Respiratory Depth Respiratory Pattern Blood Pressure 121/85 H 107/69 101/67 Blood Pressure Mean 97 81 78 Pulse Ox 97 Oxygen Delivery Method Nasal Cannula Oxygen Flow Rate (L/min) 2 10/18/24 03:00 10/18/24 03:15 10/18/24 04:41 Temperature Temperature Source Pulse Rate 87 89 74 Respiratory Rate 18 17 14 Respiratory Effort Respiratory Depth Respiratory Pattern Blood Pressure 107/74 95/69 Blood Pressure Mean 86 77 Pulse Ox 95 98 Oxygen Delivery Method Nasal Cannula Room Air Oxygen Flow Rate (L/min) 2 10/18/24 05:00 Temperature Temperature Source Pulse Rate 80 Respiratory Rate 14 Respiratory Effort Respiratory Depth Respiratory Pattern Blood Pressure 108/76 Blood Pressure Mean 86 Pulse Ox 96 Oxygen Delivery Method Room Air Oxygen Flow Rate (L/min) Weight Weight: 238 lb 1.588 oz Body Mass Index (BMI) 37.3 Results Lab / Micro Data 10/17/24 19:25 10/17/24 19:25 Labs: Laboratory Results - last 24 hr 10/17/24 19:25: WBC 11.6 H, RBC 4.53, Hgb 14.3, Hct 41.0, MCV 90.5, MCH 31.6, MCHC 34.9, RDW Std Deviation 40.1, RDW Coeff of Thad 12.2, Plt Count 306, MPV 9.8, Immature Gran % (Auto) 0.700, Neut % (Auto) 53.7, Lymph % (Auto) 35.8, [place] % (Auto) 8.2, Eos % (Auto) 1.1, Baso % (Auto) 0.5, Absolute Neuts (auto) 6.3, Absolute Lymphs (auto) 4.17, Nucleated RBC % 0, Sodium 134 L, Potassium 3.3 L, Chloride 99, Carbon Dioxide 24.0, Anion Gap 11, BUN 7, Creatinine 0.72, Estim Creat Clear Calc 136.69, Est GFR (MDRD) Af Amer 117, Est GFR (MDRD) Non-Af 97, BUN/Creatinine Ratio 9.7 L, Glucose 176 H, Calcium 8.6, Serum , Qual NEGATIVE, Ethyl Alcohol 480.0 H* 10/17/24 20:48: Urine Opiates Screen NEGATIVE, Urine Methadone Screen NEGATIVE, Ur Barbiturates Screen NEGATIVE, Ur Phencyclidine Scrn NEGATIVE, Ur Amphetamines Screen NEGATIVE, MDMA (Ecstasy) Screen NEGATIVE, U Benzodiazepines Scrn NEGATIVE, Urine Cocaine Screen POSITIVE H, U Cannabinoids Screen POSITIVE H, Ur Drug Screen Comment Imaging Radiology Impression Brain CT 10/17/24 19:19 IMPRESSION: 1. Normal CT examination of the brain. 2. No intracranial evidence of acute traumatic injury. 3. LEFT frontal scalp contusion. 4. No intracranial mass, hemorrhage or acute territorial infarct. 5. No fractures noted. 6. No radiographically significant sinus disease.. Electronically Signed: Jaxon Dsouza MD at 21:37 EST , Cervical Spine CT 10/17/24 19:19 IMPRESSION: 1. No evidence of acute cervical spinal fracture or spondylolisthesis. No acutely acquired canal stenosis. 2. Incidental note of prominence the ascending aorta at 3.9 cm incompletely visualized on current exam. Electronically Signed: Jaxon Dsouza MD at 21:40 EST , Facial/Sinus 10/17/24 19:19 IMPRESSION: 1. Nondisplaced RIGHT nasal fracture. Deviation nasal septum without evidence of fracture. 2. No other facial fractures noted. 3. LEFT frontal scalp contusion. 4. Normal appearance of the orbits including the globes and retrobulbar soft tissue planes. Electronically Signed: Jaxon Dsouza MD at 21:56 EST , Assessment & Plan Assessment/Plan (1) Alcohol intoxication in alcoholism with blood level over 0.3: QUALIFIERS: Complication of substance-induced condition: with delirium Qualified Code(s): F10.221 - Alcohol dependence with intoxication delirium (2) Closed head injury: QUALIFIERS: Encounter type: initial encounter Qualified Code(s): S09.90XA - Unspecified injury of head, initial encounter (3) Laceration of nose: QUALIFIERS: Encounter type: initial encounter Qualified Code(s): S01.21XA - Laceration without foreign body of nose, initial encounter (4) Closed fracture nasal bone: QUALIFIERS: Encounter type: initial encounter Qualified Code(s): S02.2XXA - Fracture of nasal bones, initial encounter for closed fracture (5) Cocaine abuse: (6) Cannabis abuse: (7) Obesity (BMI 30-39.9): (8) Hypokalemia: (9) Depression: QUALIFIERS: Depression Type: unspecified Qualified Code(s): F32.A - Depression, unspecified (10) Tobacco abuse: PLAN: Plan 1. Severe EtOH Intoxication with a JUAN PABLO of 480 mg/dL present on admission in the setting Chronic EtOH Abuse complicated by violent and aggressive behavior initially requiring physical restraint and ziprasidone 20 mg IM once in the setting of recent ER evaluation for EtOH Intoxication last week - Admit to general medical floor for treatment under the EtOH detoxification protocol primarily consisting of phenobarbital taper. EtOH Cessation will be strongly encouraged. We will give hydroxyzine prn for any violent and/or aggressive behavior. 2. UDS positive for Cocaine and THC complicating #1 - Cessation of the use of all illicit drugs will be strongly encouraged. 3. CT scan of the face revealed a nondisplaced nasal fracture with Left frontal scalp contusion and ~0.5 cm nose laceration noted on physical exam compounding #1 & #2 - Noted with laceration superficial so no sutures were indicated. We will treat conservatively with topical triple antibiotic ointment. 4. Obesity; with BMI of 37.3 this admission plus clinical evidence of REMY initially requiring transient supplemental oxygen adding to the medical complexity of #1 - #3 - Weight loss will be recommended. Check TSH. Start nocturnal CPAP and set up formal sleep study at time of discharge if patient is amenable. This complicates her case and may hamper recovery. 5. Hypokalemia of 3.3 mmol/L present on admission - Give supplemental KCl and then recheck level in the AM to confirm repletion. 6. Depression; likely uncontrolled and not on medical treatment suspected to be driving #1 - Patient should be considered for outpatient referral to psychiatrist once she achieves sobriety. 7. Tobacco Abuse - Tobacco Cessation will be strongly encouraged with Nicotine patch offered to control cravings. 8. Essential Hypertension - Give IV Hydralazine prn for systolic blood pressure > 160 mmHg. 9. OA; with Chronic Back Pain - Give ibuprofen prn. 10. History of tubal ligation - Noted for the sake of completeness. Urine test was also negative this admission. 11. Listed allergy to dicyclomine (hives) - Noted. 12. Listed allergy to tramadol (hives) - Noted. 13. DVT prophylaxis - Lovenox 40 mg sq daily. Total time: Approximately (but not less than) 75 minutes.
[2024-10-18 06:27] LABS: AST(SGOT) 24 U/L (15-37); Alanine Aminotransfer ALT/SGPT 36 U/L (13-56); Albumin, Serum 3.3 g/dL (3.2-5.0); Alkaline Phosphatase 57 U/L (45-117); Bilirubin, Direct 0.14 mg/dL (0.00-0.30); Globulin 3.3 g/dL (2.2-4.2); Protein, Total 6.6 g/dL (6.4-8.2)
[2024-10-18] MEDS: 0.9% Normal Saline (1000mL) 1,000 ML 70 ML IV (07:57)
[2024-10-18 08:09] LABS: Hemoglobin A1c 6.1 % (3.8-5.6)
[2024-10-18] MEDS: Phenobarbital 32.4 MG Tablet 97.2 MG PO ×2 (08:11→11:05)
[2024-10-18] MEDS: Potassium Chloride Oral Tablet 20 MEQ 60 MEQ PO (08:12)
[2024-10-18] MEDS: 0.9% Saline Lock 10 ML Syringe IV (08:14)
--- NOTE | 2024-10-18 08:46 | PCM.HOSP.N ---
Hospitalist Note 34-year-old female brought in via EMS due to alcohol and substance intoxication after falling on her face. Reportedly she was at a friend's house and got angry and belligerent and fell on her face so EMS was contacted and she was brought here. Initially was fighting staff members and required restraints. She also required Geodon. Patient was found to have a CT with nondisplaced nasal bone fracture. She was found to have UDS positive for cocaine and THC and alcohol level of 480. Once patient was more awake and alert in the morning she denied SI and HI and would like inpatient detox for alcoholism. Hospitalist contacted for admission. Admitted the morning of 10/18 (see HPI) started on a phenobarbital taper and supportive medications. Evaluated patient at bedside and she reports that she was intoxicated when asked if she wanted detox and that that was a mistake and she does not want detox. Patient willing to sign AMA papers. Also requested paper with outpatient resources, this was given to patient as well as card for [facility]. Patient reports overall feeling well and understands the reason I advised continue admission and detox but patient declines and would like to go home. Denies SI/HI. Patient left AGAINST MEDICAL ADVICE
[2024-10-18] MEDS: Thiamine Hydrochloride 100 MG Tablet PO (10:23)
[2024-10-18] MEDS: Folic Acid 1 MG Tablet PO (10:23)
[2024-10-18] MEDS: BACITRACIN/POLYMYXIN B 15 GM Tube 1 APPLIC TOPICAL (10:25)
--- NOTE | 2024-10-18 13:06 | DS.PCM_ITS ---
Providers Date of Admission: 10/18/24 Primary Care Physician: No Primary Care Phys Reason For Visit: SEVERE ETOH INTOXICATION W/ VIOLENT/AGGRESIVE BEHA Diagnosis Discharge Diagnosis (1) Alcohol intoxication in alcoholism with blood level over 0.3: Status: Acute Code(s): F10.229 - Alcohol dependence with intoxication, unspecified Qualifiers: Complication of substance-induced condition: with delirium Qualified Code(s): F10.221 - Alcohol dependence with intoxication delirium (2) Closed head injury: Status: Acute Code(s): S09.90XA - Unspecified injury of head, initial encounter Qualifiers: Encounter type: initial encounter Qualified Code(s): S09.90XA - Unspecified injury of head, initial encounter (3) Laceration of nose: Status: Acute Code(s): S01.21XA - Laceration without foreign body of nose, initial encounter Qualifiers: Encounter type: initial encounter Qualified Code(s): S01.21XA - Laceration without foreign body of nose, initial encounter (4) Closed fracture nasal bone: Status: Acute Code(s): S02.2XXA - Fracture of nasal bones, initial encounter for closed fracture Qualifiers: Encounter type: initial encounter Qualified Code(s): S02.2XXA - Fracture of nasal bones, initial encounter for closed fracture (5) Cocaine abuse: Status: Acute Code(s): F14.10 - Cocaine abuse, uncomplicated (6) Cannabis abuse: Status: Acute Code(s): F12.10 - Cannabis abuse, uncomplicated (7) Obesity (BMI 30-39.9): Status: Acute Code(s): E66.9 - Obesity, unspecified (8) Hypokalemia: Status: Acute Code(s): E87.6 - Hypokalemia (9) Depression: Status: Acute Code(s): F32.A - Depression, unspecified Qualifiers: Depression Type: unspecified Qualified Code(s): F32.A - Depression, unspecified (10) Tobacco abuse: Status: Acute Code(s): Z72.0 - Tobacco use Medications at Discharge Home Medications NK 11/25/21 Hospital Course Summary of Care Provided Hospital Course: Per HPI: NGA WHELAN, is a 34 F with a past medical history of essential hypertension, obesity; with BMI of 37.3 this admission, tobacco abuse, OA; with chronic back pain, history of tubal ligation, listed allergy to dicyclomine (hives), listed allergy to tramadol (hives), depression and history of EtOH Abuse complicated by aggressive and violent behavior; with recent visit to ER here for EtOH Intoxication ~1 week ago who initially presented to [facility] ER after she was found by EMS intoxicated with a head injury and bleeding from the bridge of her nose after she fell at a friend's house after becoming belligerent and then allegedly falling onto her face. According to the ER records she arrived around 19:36 hours and was fighting staff members and requiring restraints with patient otherwise refusing to speak so she was then treated with ziprasidone 20 mg IM once in addition to restraints applied for her safety. She was noted to have a hematoma over the middle of her forehead with a small ~0.5 cm laceration over her nose with no septal hematoma. Her subsequent CT scan of the head was negative for acute intracranial hemorrhage and her CT of the neck was negative for fracture - but her CT scan of the face revealed a nondisplaced nasal fracture with Left frontal scalp contusion. She was also then noted to have signs of obstructive sleep apnea with with snoring likely exacerbated by EtOH intoxication so she was placed on supplemental oxygen. Her UDS returned positive for cocaine and THC with a JUAN PABLO of 480 mg/dL consistent with Severe EtOH Intoxication in the setting Chronic EtOH Abuse along with mild Hypokalemia of 3.3 mmol/L present on admission and a negative urine test. Then at 05:45 hours when she was fully calmed down and responsive she was asked if she had suicidal or homicidal ideation - which she denied. She was then allowed to get up and go to the restroom and she was asked if she would like to enter the EtOH detoxification program and she then answered in the affirmative so the hospitalist service was then contacted to admit this patient to the general medical floor for ongoing care for a stay that is expected to extend beyond 2 midnights. INTERVAL HISTORY: Patient left AGAINST MEDICAL ADVICE Weight / BMI Weight Weight: 108 kg Body Mass Index (BMI) 37.3 ABG / Lab / Microbiology Data 10/17/24 19:25 10/17/24 19:25 Laboratory: Laboratory Results - last 24 hr 10/17/24 19:25: WBC 11.6 H, RBC 4.53, Hgb 14.3, Hct 41.0, MCV 90.5, MCH 31.6, MCHC 34.9, RDW Std Deviation 40.1, RDW Coeff of Thad 12.2, Plt Count 306, MPV 9.8, Immature Gran % (Auto) 0.700, Neut % (Auto) 53.7, Lymph % (Auto) 35.8, [place] % (Auto) 8.2, Eos % (Auto) 1.1, Baso % (Auto) 0.5, Absolute Neuts (auto) 6.3, Absolute Lymphs (auto) 4.17, Nucleated RBC % 0, Sodium 134 L, Potassium 3.3 L, Chloride 99, Carbon Dioxide 24.0, Anion Gap 11, BUN 7, Creatinine 0.72, Estim Creat Clear Calc 136.69, Est GFR (MDRD) Af Amer 117, Est GFR (MDRD) Non-Af 97, B UN/Creatinine Ratio 9.7 L, Glucose 176 H, Hemoglobin A1c 6.1 H, Calcium 8.6, Serum , Qual NEGATIVE, Ethyl Alcohol 480.0 H* 10/17/24 20:48: Urine Opiates Screen NEGATIVE, Urine Methadone Screen NEGATIVE, Ur Barbiturates Screen NEGATIVE, Ur Phencyclidine Scrn NEGATIVE, Ur Amphetamines Screen NEGATIVE, MDMA (Ecstasy) Screen NEGATIVE, U Benzodiazepines Scrn NEGATIVE, Urine Cocaine Screen POSITIVE H, U Cannabinoids Screen POSITIVE H, Ur Drug Screen Comment 10/18/24 05:58: Total Bilirubin 0.20, Direct Bilirubin 0.14, AST 24, ALT 36, Alkaline Phosphatase 57, Total Protein 6.6, Albumin 3.3, Globulin 3.3, TSH 2.370 Radiography Diagnostic Testing: Radiology Impression Brain CT 10/17/24 19:19 IMPRESSION: 1. Normal CT examination of the brain. 2. No intracranial evidence of acute traumatic injury. 3. LEFT frontal scalp contusion. 4. No intracranial mass, hemorrhage or acute territorial infarct. 5. No fractures noted. 6. No radiographically significant sinus disease.. Electronically Signed: Jaxon Dsouza MD at 21:37 EST , Cervical Spine CT 10/17/24 19:19 IMPRESSION: 1. No evidence of acute cervical spinal fracture or spondylolisthesis. No acutely acquired canal stenosis. 2. Incidental note of prominence the ascending aorta at 3.9 cm incompletely visualized on current exam. Electronically Signed: Jaxon Dsouza MD at 21:40 EST , Facial/Sinus 10/17/24 19:19 IMPRESSION: 1. Nondisplaced RIGHT nasal fracture. Deviation nasal septum without evidence of fracture. 2. No other facial fractures noted. 3. LEFT frontal scalp contusion. 4. Normal appearance of the orbits including the globes and retrobulbar soft tissue planes. Electronically Signed: Jaxon Dsouza MD at 21:56 EST , D/C Instructions DC O2, CPAP, BIPAP Needs Additional Home O2 Discharge instructions: No DC home with Oxygen: No Meaningful Use Info Meaningful Use Meaningful Use Diagnoses (Choose all that apply): None applicable Ischemic Stroke Statin Dosing Therapy Reference: STATIN DOSE THERAPY REFERENCE: * Patients > 75 years receive moderate or high dose statin therapy. * Patients 75 years or YOUNGER should receive HIGH intensity statin dose unless contraindicated. You will be required to document reason for non-treatment if statin daily dose does not meet guidelines. HIGH DOSE STATIN THERAPY DAILY Atorvastatin > than or = to 40 mg Rosuvastatin > than or = to 20 mg Amlodipine + Atorvastatin > than or = to 2.5/40 mg Ezetimibe + Simvastatin 10/80 mg Simvastatin 80mg Discharge Plan Admission Admit Date/Time: 10/18/24 06:45 Attending Provider: Kary Menard Primary Care Provider: Care Physician,No Primary Consulting Providers: Balta Minaya Instructions Forms: Work / School Excuse Patient Instructions: ED Alcohol Intoxication, ED Facial Contusion, ED CONTUSION Face [w/ Wake Up], ED Laceration Superficial No Stitch Discharge Orders/Prescriptions Prescriptions: No Action NK Referrals / Follow Up: Care Physician,No Primary [Primary Care Provider] - Disposition Disposition (needs filled in before D/C Order can be placed): Against Medical Advice
== END 2024-10-18 13:01 | disposition left against medical advice (07) ==
LOC: ED 10-18 05:53 → MS3 10-18 06:36
PROVIDERS: Emergency Medicine; Admitting Provider Internal Medicine; Emergency Provider Emergency Medicine; Visit Provider Internal Medicine
DX: F10.221 Alcohol dependence with intoxication delirium (principal); F14.10 Cocaine abuse, uncomplicated; S02.2XXA Fracture of nasal bones, initial encounter for closed fracture; Z68.37 Body mass index [BMI] 37.0-37.9, adult; S01.21XA Laceration without foreign body of nose, initial encounter; G47.33 Obstructive sleep apnea (adult) (pediatric); R45.6 Violent behavior; E87.6 Hypokalemia; Z53.29 Procedure and treatment not carried out because of patient's decision for other reasons; E66.9 Obesity, unspecified; M19.90 Unspecified osteoarthritis, unspecified site; F32.A Depression, unspecified; W19.XXXA Unspecified fall, initial encounter; F12.10 Cannabis abuse, uncomplicated; I10 Essential (primary) hypertension; F17.210 Nicotine dependence, cigarettes, uncomplicated; Y92.019 Unspecified place in single-family (private) house as the place of occurrence of the external cause; S00.83XA Contusion of other part of head, initial encounter; S00.03XA Contusion of scalp, initial encounter; Y90.8 Blood alcohol level of 240 mg/100 ml or more
CPT/HCPCS: 70450; 70486; 72125; 80048; 80076; 80307; 82077; 83036; 84443; 84703; 85025; 93005; 96372; 99221; 99285; J7030; A4216; G0378; J3486